=== PATIENT | female | born 1985 | race Caucasian/White ===

== ENCOUNTER 2019-12-17 15:55 | Emergency (ER) | payer SELFPAY ==
[2019-12-17] MEDS ORDERED: Sodium Chloride 0.9% 10 ML Syringe FLUSH PRN (16:24)
--- NOTE | 2019-12-17 16:32 | EDM.PDOC ---
ED HPI GENERAL MEDICAL PROBLEM - General Chief Complaint: Chest Pain Stated Complaint: RIB PAIN Time Seen by Provider: 12/17/19 16:05 Source of Information: Reports: Patient, RN Notes Reviewed History Limitations: Reports: No Limitations - History of Present Illness INITIAL COMMENTS - FREE TEXT/NARRATIVE: Patient is a 34-year-old female who presents to the ED for evaluation of bilateral rib pain. Patient states for the last 3 years, she has been dealing with some pain on the lower margin of her ribs. She states this seems to start mid rib and work its way towards the center of her abdomen. Patient thinks it has been getting worse over the last 6 months, she developed some sharp heart pains where she felt like she was being poked with a needle last night. This is what brought her to the ER for evaluation was the concern over the heart pains and not being able to sleep from the pain. Patient states there does not seem to be radiation anywhere else in her body, she is not complaining of any vomiting or diarrhea, states she did have a good bowel movement this morning and she is fairly regular in her bathroom habits, she denies any dysuria, frequency or urgency had some nausea this morning with the pain, no cough no fever/chills or shortness of breath. The patient notes that she has been taking ibuprofen for the pain, she states sometimes up to 5 tablets at a time for pain relief. She also recounts a sour/metal taste in her mouth last night. 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 She denies any drug use. Patient denies any sort of heartburn component or burning in nature of the pain. Chest Pain Score (Numeric/FACES): 4 - Related Data Allergies Allergy/AdvReac Type Severity Reaction Status Date / Time No Known Allergies Allergy Verified 12/17/19 16:09 Past Medical History - Past Health History Medical/Surgical History: Denies Medical/Surgical History Social & Family History - Family History Family Medical History: Noncontributory - Tobacco Use Smoking Status *Q: Former Smoker Used Tobacco, but Quit: Yes Month/Year Tobacco Last Used: Ja. 2019 - Caffeine Use Caffeine Use: Reports: None - Alcohol Use Alcohol Use History: Yes Days Per Week of Alcohol Use Comment: Used to be a heavy drinker, but quit 1 year ago Alcohol Use Frequency: Not Used in Over 1 Year - Recreational Drug Use Recreational Drug Use: No - Sexual History Sexual History: Reports: Same Sex Partner - Living Situation & Occupation Living situation: Reports: with Significant Other Occupation: Employed ([employer] as a personal banker) ED ROS GENERAL - Review of Systems Review Of Systems: Comprehensive ROS is negative, except as noted in HPI. ED EXAM, GENERAL - Physical Exam Exam: See Below Exam Limited By: No Limitations General Appearance: Alert, WD/WN, No Apparent Distress Eye Exam: Bilateral Eye: EOMI, Normal Inspection, PERRL Ears: Normal External Exam Nose: Normal Inspection Throat/Mouth: Normal Inspection, Normal Lips, Normal Teeth, Normal Gums, Normal Oropharynx, Normal Voice, No Airway Compromise Head: Atraumatic, Normocephalic Neck: Normal Inspection Respiratory/Chest: No Respiratory Distress, Lungs Clear, Normal Breath Sounds, No Accessory Muscle Use, Other (Patient states that she is tender along the lower rib margins on both sides, she notes that she wears a sports bra in nature and does not wear underwire bras) Cardiovascular: Normal Peripheral Pulses, Regular Rate, Rhythm, No Murmur Peripheral Pulses: 3+: Radial (L), Radial (R) GI/Abdominal: Normal Bowel Sounds, Soft, No Distention, No Mass, Tender (LUQ) Extremities: Normal Inspection, Normal Capillary Refill Neurological: Alert, Oriented, Normal Cognition, No Motor/Sensory Deficits Psychiatric: Normal Affect, Normal Mood Skin Exam: Warm, Dry, Intact, Normal Color, No Rash EKG INTERPRETATION EKG Date: 12/17/19 Time: 16:35 Rhythm: NSR Rate (Beats/Min): 79 [place]: Normal P-Wave: Present QRS: Normal ST-T: Normal QT: Normal Comparison: NA - No Prior EKG EKG Interpretation Comments: No obvious ischemia or acute ST changes noted, reviewed by myself and Dr. Saxena. Course - Vital Signs Last Recorded V/S: Last Vital Signs Temp 97.6 F 12/17/19 16:04 Pulse 83 12/17/19 16:04 Resp 16 12/17/19 16:04 BP 104/73 12/17/19 16:04 Pulse Ox 98 12/17/19 16:04 - Orders/Labs/Meds Orders: Active Orders 24 hr Category Date Time Status EKG Documentation Completion [RC] STAT Care 12/17/19 16:23 Ordered Peripheral IV Care [RC] . DIRECTED Care 12/17/19 16:25 Ordered Chest 2V [CR] Stat Exams 12/17/19 16:23 Ordered KUB [Abdomen 1V Flat] [CR] Stat Exams 12/17/19 16:24 Ordered Sodium Chloride 0.9% [Saline Flush] Med 12/17/19 16:24 Ordered 10 ml FLUSH ASDIRECTED PRN Peripheral IV Insertion Adult [OM.PC] Stat Oth 12/17/19 16:25 Ordered Medication Orders Sodium Chloride (Saline Flush) 10 ml FLUSH ASDIRECTED PRN PRN Reason: Keep Vein Open Labs: Laboratory Tests 12/17/19 12/17/19 Range/Units 16:35 16:35 WBC 5.37 (3.98-10.04) K/mm3 RBC 4.25 (3.98-5.22) M/mm3 Hgb 11.3 (11.2-15.7) gm/dl Hct 36.4 (34.1-44.9) % MCV 85.6 (79.4-94.8) fl MCH 26.6 (25.6-32.2) pg MCHC 31.0 L (32.2-35.5) g/dl RDW Std Deviation 43.1 (36.4-46.3) fL Plt Count 132 L (182-369) K/mm3 MPV 13.3 H (9.4-12.3) fl Neut % (Auto) 78.3 H (34.0-71.1) % Lymph % (Auto) 12.7 L (19.3-51.7) % Moca % (Auto) 6.9 (4.7-12.5) % Eos % (Auto) 1.7 (0.7-5.8) Baso % (Auto) 0.2 (0.1-1.2) % Neut # (Auto) 4.21 (1.56-6.13) K/mm3 Lymph # (Auto) 0.68 L (1.18-3.74) K/mm3 [place]oca # (Auto) 0.37 H (0.24-0.36) K/mm3 Eos # (Auto) 0.09 (0.04-0.36) K/mm3 Baso # (Auto) 0.01 (0.01-0.08) K/mm3 Sodium 142 (136-145) mEq/L Potassium 3.5 (3.5-5.1) mEq/L Chloride 107 (98-107) mEq/L Carbon Dioxide 27 (21-32) mEq/L Anion Gap 11.5 (5-15) BUN 10 (7-18) mg/dL Creatinine 0.7 (0.55-1.02) mg/dL Est Cr Clr Drug Dosing 87.06 mL/min Estimated GFR (MDRD) > 60 (>60) mL/min BUN/Creatinine Ratio 14.3 (14-18) Glucose 92 (74-106) mg/dL Calcium 8.7 (8.5-10.1) mg/dL Magnesium 1.8 (1.8-2.4) mg/dl Total Bilirubin 0.6 (0.2-1.0) mg/dL GGT 17 (5-55) U/L AST 12 L (15-37) U/L ALT 20 (14-59) U/L Alkaline Phosphatase 69 (46-116) U/L Troponin I < 0.017 (0.00-0.056) ng/mL Total Protein 7.2 (6.4-8.2) g/dl Albumin 3.7 (3.4-5.0) g/dl Globulin 3.5 gm/dL Albumin/Globulin Ratio 1.1 (1-2) Lipase 77 (73-393) U/L Meds: Medications Generic Name Dose Route Start Last Admin Trade Name Freq PRN Reason Stop Dose Admin Sodium Chloride 10 ml 12/17/19 16:24 Saline Flush FLUSH ASDIRECTED PRN Keep Vein Open - Re-Assessments/Exams Free Text/Narrative Re-Assessment/Exam: 12/17/19 16:34 Patient presents to the ED for her bilateral rib pain/upper abdomen pain. Her account is very nonspecific for any obvious abnormalities. Have ordered EKG, chest x-ray, abdomen x-ray and labs for evaluation. 12/17/19 17:11 Laboratory evaluation is unremarkable for any abnormalities. Chest x-ray is also within normal limits, and EKG shows no acute ischemia or ST changes. Patient will be discharged home and told to follow-up with primary care provider for lingering symptoms. Seems like she is taking obscene amount of ibuprofen on a daily basis, I will try to have her cut back on that if possible. We will also have her trial omeprazole [id number], to see if some acid suppression in her stomach also does not help relieve some of her symptoms. Abdomen x-ray does demonstrate quite a bit of stool throughout the colon, some on the transverse colon which could be attributing to some of her abdomen pains. I will recommend that she take a probiotic with her diet, and send her home with a bottle of mag citrate for a bowel cleanse. Departure - Departure Time of Disposition: 17:14 Disposition: Home, Self-Care 01 Condition: Good Clinical Impression: Chest wall pain, Upper abdominal pain Constipation Qualifiers: Constipation type: other constipation type Qualified Code(s): K59.09 - Other constipation Instructions: Chest Wall Pain, [id number], Probiotics, Constipation, Adult, [id number], Nonspecific Chest Pain, Adult, [id number] Referrals: PCP,None [Primary Care Provider] - Low Trotter NP [Nurse Practitioner] - 2 Weeks Forms: ED Department Discharge Additional Instructions: You were evaluated in the ER today regarding your lower rib cage pain and chest pains. Your work-up in the ER included a chest x-ray, abdomen x-rays, EKG and basic laboratory evaluation. All of your labs are essentially unremarkable, there is no emergent considerations that need further work-up in the ER. EKG is also within normal limits, there is no sign of any sort of cardiac etiology that would be suggestive of your chest pain. Your abdomen x-ray did demonstrate quite a bit of stool throughout your colon, and 3 your transverse colon which could be pushing on the lower portion of your rib cage which could be aggravating some of the pain.You have been given a bottle of magnesium citrate to help provide a bowel cleanse. Please drink one half the bottle, if you do not have a rather large bowel movement within 3 to 4 hours, repeat with the last half bottle. Further recommend you try to include probiotics in your diet to help regulate intestinal health, and trial a medication called omeprazole or (Prilosec), which is an [id number] medication to help suppress some of the acid in your stomach. Taking too much NSAIDs (ibuprofen) can be aggravating on the stomach, and can also be attributing to some of your symptoms. Please try to cut back on the amount of ibuprofen you are taking, you may try to take 500 mg of Tylenol in combination with this every 6 hours. You have been referred to a provider named Low Trotter, she is a family practice provider in our clinic, please call [phone] to obtain an appointment with her for follow-up. Please return to the ER at any time if symptoms should change or worsen. Sepsis Event Note - Evaluation Sepsis Screening Result: No Definite Risk - Focused Exam Vital Signs: Vital Signs Temp Pulse Resp BP Pulse Ox 12/17/19 16:04 97.6 F 83 16 104/73 98 Date Exam was Performed: 12/17/19 Time Exam was Performed: 17:11 - My Orders Last 24 Hours: My Active Orders 12/17/19 16:23 EKG Documentation Completion [RC] STAT Chest 2V [CR] Stat 12/17/19 16:24 KUB [Abdomen 1V Flat] [CR] Stat Sodium Chloride 0.9% [Saline Flush] 10 ml FLUSH ASDIRECTED PRN 12/17/19 16:25 Peripheral IV Care [RC] . DIRECTED Peripheral IV Insertion Adult [OM.PC] Stat - Assessment/Plan Last 24 Hours: My Active Orders 12/17/19 16:23 EKG Documentation Completion [RC] STAT Chest 2V [CR] Stat 12/17/19 16:24 KUB [Abdomen 1V Flat] [CR] Stat Sodium Chloride 0.9% [Saline Flush] 10 ml FLUSH ASDIRECTED PRN 12/17/19 16:25 Peripheral IV Care [RC] . DIRECTED Peripheral IV Insertion Adult [OM.PC] Stat
--- NOTE | 2019-12-17 17:14 | CR ---
Abdomen: Supine view of the abdomen was obtained. Comparison: No previous abdominal imaging. Bowel gas pattern appears normal. No abnormal calcifications or soft tissue abnormality is seen. Bony structures are unremarkable. Impression: 1. Nothing acute is identified on supine abdominal x-ray. Diagnostic code #1 This report was dictated in MDT
--- NOTE | 2019-12-17 17:14 | CR ---
Chest: 2 views of the chest were obtained. Comparison: No prior chest imaging. Heart size and mediastinum are normal. Lungs are clear with no acute parenchymal change. Bony structures are unremarkable. Impression: 1. Nothing acute is seen on 2 view chest x-ray. Diagnostic code #1 This report was dictated in MDT
[2019-12-17] MEDS ORDERED: Magnesium Citrate Solution 296 ML Bottle PO ONE (17:19)
== END 2019-12-17 17:40 | disposition home or self-care (01) ==
LOC: JD.ED 15:55
DX: R07.89 Other chest pain (principal); R10.10 Upper abdominal pain, unspecified; Z87.891 Personal history of nicotine dependence
CPT/HCPCS: 36415; 71046; 74018; 80053; 82977; 83690; 83735; 84484; 85025; 93005; 99284; A9270